=== PATIENT | female | born 1975 | race Two or more races ===

== ENCOUNTER → 2023-11-21 | Outpatient (CLI) | payer BC ==
[2023-11-21 07:51] LABS: Basophils # (auto) 0.1 10 ^3/uL (0-0.2); Basophils % (auto) 1.2 % (0.0-2.0); Eosinophils # (auto) 0.1 10 ^3/uL (0-0.8); Eosinophils % (auto) 2.4 % (0.0-7.0); Hematocrit 40.1 % (36.0-46.0); Hemoglobin 13.1 g/dL (12.2-16.2); Lymphocytes # (auto) 1.9 10 ^3/uL (0.4-5.4); Lymphocytes % (auto) 33.6 % (10.0-50.0); Mean Corpuscular Hemoglobin 30.3 pg (28.0-32.0); Mean Corpuscular Hgb Conc. 32.7 g/dL (32.0-36.0); Mean Corpuscular Volume 92.6 fL (80.0-100.0); Monocytes # (auto) 0.4 10 ^3/uL (0-1.3); Monocytes % (auto) 7.7 % (0.0-12.0); Neutrophils # (auto) 3.1 10 ^3/uL (1.6-8.6); Neutrophils % (auto) 55.1 % (37.0-80.0); Nucleated Red Blood Cells % 0.1 %; Red Blood Cells 4.33 10^6/uL (4.0-5.20); Red Cell Distribution Width 13.1 % (11.8-14.3); White Blood Cell 5.6 10^3/uL (4.4-10.8)
[2023-11-21 08:13] LABS: Urine Bacteria FEW /hpf (None Seen); Urine Blood Negative /uL (Negative); Urine Clarity Clear (Clear); Urine Color Colorless (Yellow); Urine Protein, UAD Negative (Negative); Urine Specific Gravity 1.007 (1.001-1.035); Urine Urobilinogen Normal (Negative); Urine WBC 9 /hpf (0 - 5); Urine pH 5.5 (5.0-9.0)
[2023-11-21 08:34] LABS: Protein, Urine < 6.0 mg/dL (0.0-11.9)
[2023-11-21 08:37] LABS: Creatinine, Urine 42.23 mg/dL (30.0-125.0)
[2023-11-21 08:38] LABS: Creatinine, Urine 41.74 mg/dL (30.0-125.0)
[2023-11-21 08:40] LABS: Alanine Aminotransferase 12 U/L (7-40); Albumin 4.6 g/dL (3.2-4.8); Alkaline Phosphatase 71 U/L (46-116); Anion Gap 6 (5-15); Aspartate Aminotransferase 20 U/L (13-40); BUN/Creatinine Ratio 8.9 (10.0-20.0); Blood Urea Nitrogen 8 mg/dL (9-23); CRP High Sensitivity 0.07 mg/dL (<1.0); Calcium 10.4 mg/dL (8.5-10.1); Carbon Dioxide 27 mmol/L (20-30); Chloride 107 mmol/L (98-107); Cholesterol 206 mg/dL (< 200); Creatine Kinase IFCC 79 U/L (34-145); Glucose 80 mg/dL (74-106); LDL Cholesterol 138 mg/dL (< 100); Potassium 4.2 mmol/L (3.5-5.1); Sodium 140 mmol/L (136-145); Triglycerides 119 mg/dL (< 150); Urine Protein/Creatinine Ratio < 0.14
[2023-11-21 08:41] LABS: Bilirubin, Total 0.5 mg/dL (0.2-1.0); HDL Cholesterol 56 mg/dL (40-59); Micro Albumin < 3.0 mg/L (<30.0); Total Protein 7.2 g/dL (5.7-8.2)
[2023-11-21 08:44] LABS: Microalb/Creat Ratio, Urine < 7.00
[2023-11-21 08:47] LABS: Erythrocyte Sedimentation Rate 13 mm/hr (0-20)
[2023-11-22 08:06] LABS: Complement C3 128 mg/dL (82-167)
== END | disposition home or self-care (01) ==
LOC: LAB 07:13
PROVIDERS: ATTEND Internal Medicine
DX: Z12.11 Encounter for screening for malignant neoplasm of colon (principal); M32.9 Systemic lupus erythematosus, unspecified; E11.9 Type 2 diabetes mellitus without complications; M35.9 Systemic involvement of connective tissue, unspecified; Z79.899 Other long term (current) drug therapy
CPT/HCPCS: 36415; 80053; 80061; 81001; 82043; 82550; 82570; 83036; 84156; 84443; 85025; 85652; 86141; 86160

== ENCOUNTER 2024-09-12 01:16 | Emergency (ER) | payer BC ==
[~2024-09-12] VITALS: Ht 157.5 cm; Wt 63.6 kg
--- NOTE | 2024-09-12 01:28 | ED.PDOC ---
History of Present Illness HPI Comments 49 y/o F presents with c/o abdominal pain, nausea, and vomiting, today. Patient endorses on sudden and unprovoked onset of symptoms, this morning. She comments on pain originating in her epigastric region and radiating towards her sternum and upper-back in between her shoulders. Patient reports on pain being sharp in quality, constant, and rates it a 10/10 in severity. She denies having any hematemesis, hematochezia, urinary symptoms, fever, chills, or other associated symptoms or modifiers at this time. Time Seen by MD: 01:20 Reviewed Notes: Nurses Notes, Medications, Allergies Allergies: Coded Allergies: No Known Drug Allergy (Verified Allergy, Unknown, 09/12/24) Home Meds Active Scripts Famotidine (PEPCID TABLET) 20 Mg Tb, 1 TAB PO BID PRN for 30 Days, #60 TAB 5 Refills Prov:DARNELL SILVER MD 09/12/24 Ondansetron HCl (Ondansetron Hydrochloride) 8 Mg Tab, 8 MG PO Q6HP PRN, #30 TAB Prov:DARNELL SILVER MD 09/12/24 Information Source: Patient Mode of Arrival: Ambulatory Severity: Moderate Timing: Hours Duration: Since onset Prehospital treatment: None Past Medical History PAST MEDICAL HISTORY: Denies Surgical History: Denies all surgeries CHAIN TENDER History: No Pertinent CHAIN TENDER History Family History Family History: Unknown Social History Smoker: Non-Smoker Alcohol: Denies ETOH Use Drugs: Denies Drug Use Lives In: Home Gastrointestinal: reports: abdominal pain, nausea, vomiting Musculoskeletal: reports: back pain All Other Systems: Reviewed and Negative (negative unless otherwise stated above or in HPI) Physical Exam General Appearance: Moderate Distress, Other (anxious appearing ) HEENT: Normal ENT Inspection, Pharynx Normal, TMs Normal Neck: Full Range of Motion, Non-Tender, Normal, Normal Inspection Respiratory: Chest Non-Tender, Lungs Clear, No Accessory Muscle Use, No Respiratory Distress, Normal Breath Sounds Cardiovascular: No Edema, No JVD, No Murmur, No Gallop, Normal Peripheral Puls es, Regular Rate/Rhythm Breast Exam: Deferred Gastrointestinal: Epigastric (tenderness), No Organomegaly, No Pulsatile Mass, Normal Bowel Sounds, Soft, Tenderness (epigastric region ) Genitalia: Deferred Pelvic: Deferred Rectal: Deferred Extremities: No calf tenderness, Normal capillary refill, Normal inspection, Normal range of motion, Non-tender, No pedal edema Musculoskeletal : Apperance: Normal Neurologic: Alert, stoneworker II-XII nml as Tested, No Motor Deficits, Normal Affect, Normal Mood, No Sensory Deficits Cerebellar Function: Normal Reflexes: Normal Skin: Dry, Normal Color, Warm Lymphatic: No Adenopathy Was a procedure done? Was a procedure done?: No EKG EKG : Pulse Rate (adult): 75 Timber: Normal Cardiac Rhythm: NSR Block: None Hypertrophy: None ST: Normal Differential Dx Considerations may include: gastritis, gastroenteritis, viral syndrome, spoiled food, GERD, PUD X-Ray, Labs, Meds, VS Vital Signs Date Time Temp Pulse Resp B/P (MAP) Pulse Ox O2 Delivery O2 Flow Rate FiO2 09/12/24 06:20 97.5 59 16 125/78 (94) 100 97.5 09/12/24 02:59 98.7 66 12 115/68 (84) 100 98.7 09/12/24 02:57 66 12 115/68 09/12/24 02:30 Room Air* 0 21 09/12/24 02:16 88 22 143/68 09/12/24 02:09 98.6 88 22 143/68 (93) 100 98.6 09/12/24 02:09 75 09/12/24 01:33 97.2 76 24 111/76 (88) 100 09/12/24 01:23 75 Lab Test 09/12/24 02:23 09/12/24 01:27 Range/Units Troponin I High Sensitivity < 3 L < 3 L </=34 ng/L White Blood Count 6.6 4.4-10.8 10^3/uL Red Blood Count 4.31 4.0-5.20 10^6/uL Hemoglobin 13.3 12.2-16.2 g/dL Hematocrit 40.0 36.0-46.0 % Mean Corpuscular Volume 92.9 80.0-100.0 fL Mean Corpuscular Hemoglobin 31.0 28.0-32.0 pg Mean Corpuscular Hemoglobin Concent 33.4 32.0-36.0 g/dL Red Cell Distribution Width 12.5 11.8-14.3 % Platelet Count 319 140-450 10^3/uL Mean Platelet Volume 7.1 6.9-10.8 fL Neutrophils (%) (Auto) 37.0-80.0 % Lymphocytes (%) (Auto) 10.0-50.0 % Monocytes (%) (Auto) 0.0-12.0 % Basophils (%) (Auto) 0.0-2.0 % Neutrophils # (Auto) 1.6-8.6 10 ^3/uL Lymphocytes # (Auto) 0.4-5.4 10 ^3/uL Monocytes # (Auto) 0-1.3 10 ^3/uL Differential Total Cells Counted 100.0 100 Neutrophils % (Manual) 31 L 37.0-80.0 Band Neutrophils % (Manual) 0 Lymphocytes % (Manual) 68 H 10.0-50.0 Monocytes % (Manual) 0 0-12 Eosinophils % (Manual) 1 0-7 Basophils % (Manual) 0 0.0-2.0 Metamyelocytes % (manual) 0 Myelocytes % (Manual) 0 Promyelocytes % (Manual) 0 Blast Cells % (Manual) 0 Reactive Lymphocytes 0 Platelet Estimate Adequate Prothrombin Time 10.0 9.3-11.8 sec Prothrombin Time INR 0.94 0.9-1.15 Activated Partial Thromboplast Time 23.7 L 24.5-34.5 SEC Sodium Level 141 136-145 mmol/L Potassium Level 4.1 3.5-5.1 mmol/L Chloride Level 103 98-107 mmol/L Carbon Dioxide Level 28 20-31 mmol/L Anion Gap 10 5-15 Blood Urea Nitrogen 13 9-23 mg/dL Creatinine 0.93 0.550-1.02 mg/dL Glomerular Filtration Rate Calc 74 >90 mL/min BUN/Creatinine Ratio 14.0 10.0-20.0 Serum Glucose 123 H 74-106 mg/dL Calcium Level 10.7 H 8.7-10.4 mg/dL Total Bilirubin 0.4 0.2-1.0 mg/dL Aspartate Amino Transferase (AST) 59 H 13-40 U/L Alanine Aminotransferase (ALT) 35 7-40 U/L Alkaline Phosphatase 84 46-116 U/L Total Protein 7.0 5.7-8.2 g/dL Albumin 4.7 3.2-4.8 g/dL Lipase 89 H 12-53 U/L Current Medications Medications (Trade) Dose Ordered Sig/Solitario Route Start Time Stop Time Status Last Admin Ondansetron HCl (Zofran) 4 mg ONCE ONCE IV 09/12/24 01:30 09/12/24 01:31 DC 09/12/24 02:15 Hydromorphone HCl (Dilaudid Injection) 1 mg ONCE ONCE IV 09/12/24 01:30 09/12/24 01:31 DC 09/12/24 02:16 Sodium Chloride 1,000 ml @ 1,000 mls/hr Q1H ONCE IVB 09/12/24 01:30 09/12/24 02:29 DC 09/12/24 02:10 Time of 1ST Reevaluation: 01:50 Reevaluation 1ST: Unchanged Time of 2ND Reevaluation: 03:00 Reevaluation 2ND: Improved Patient Education/Counseling: Diagnosis, Treatment Family Education/Counseling: No Family Present Departure 1 Departure Time of Disposition: 03:00 Impression: Primary Impression: Epigastric pain Additional Impression: Acute chest pain Disposition: HOME / SELF CARE / HOMELESS Condition: Stable e-Prescriptions Famotidine (PEPCID TABLET) 20 Mg Tb 1 TAB PO BID PRN for 30 Days, #60 TAB 5 Refills Prov: DARNELL SILVER MD 09/12/24 Ondansetron HCl (Ondansetron Hydrochloride) 8 Mg Tab 8 MG PO Q6HP PRN, #30 TAB Prov: DARNELL SILVER MD 09/12/24 Discharged With: Self Critical Care Note Critical Care Time?: No Stability Stability form required: No Heart Score Heart Score: Heart Score Response (Comments) Value History Slightly Suspicious 0 EKG Normal 0 Age 45-64 1 Risk Factors 1 or 2 risk factors 1 Troponin Normal limit 0 Total 2 I personally scribed for DARNELL SILVER MD ([email or web address]) on 09/12/24 at 01:28. Electronically submitted by Peter Jurado ([email or web address]). I personally scribed for DARNELL SILVER MD ([email or web address]) on 09/12/24 at 02:09. E lectronically submitted by Peter Jurado ([email or web address]). DARNELL SILVER MD Sep 12, 2024 01:28
[2024-09-12 01:38] LABS: Hemoglobin 13.3 g/dL (12.2-16.2); Mean Corpuscular Hgb Conc. 33.4 g/dL (32.0-36.0); Mean Corpuscular Volume 92.9 fL (80.0-100.0); Platelet Count (auto) 319 10^3/uL (140-450); Red Blood Cells 4.31 10^6/uL (4.0-5.20); Red Cell Distribution Width 12.5 % (11.8-14.3); White Blood Cell 6.6 10^3/uL (4.4-10.8)
[2024-09-12 01:46] LABS: Band Neutrophils % (manual) 0; Basophils % (manual) 0 (0.0-2.0); Blast Cells 0; Metamyelocytes % 0; Monocytes % (manual) 0 (0-12); Myelocytes % 0; Promyelocytes % 0; Reactive Lymphocytes 0
[2024-09-12 01:55] LABS: INR 0.94 (0.9-1.15); Partial Thromboplastin Time 23.7 SEC (24.5-34.5)
[2024-09-12 01:57] LABS: Alanine Aminotransferase 35 U/L (7-40); Albumin 4.7 g/dL (3.2-4.8); Alkaline Phosphatase 84 U/L (46-116); Anion Gap 10 (5-15); Aspartate Aminotransferase 59 U/L (13-40); Blood Urea Nitrogen 13 mg/dL (9-23); Calcium 10.7 mg/dL (8.7-10.4); Carbon Dioxide 28 mmol/L (20-31); Chloride 103 mmol/L (98-107); Glucose 123 mg/dL (74-106); Lipase 89 U/L (12-53); Potassium 4.1 mmol/L (3.5-5.1); Sodium 141 mmol/L (136-145)
[2024-09-12 01:58] LABS: Bilirubin, Total 0.4 mg/dL (0.2-1.0)
[2024-09-12] MEDS: SODIUM CHLORIDE 0.9% 1,000 ML IVB ONE (02:10)
[2024-09-12] MEDS: ONDANSETRON HCL 4 MG/2 ML VIAL IV ONE (02:15)
[2024-09-12] MEDS: HYDROmorphone HCL 2 MG/ML VL/or syr IV ONE (02:16)
[2024-09-12 03:11] LABS: Eosinophils % (manual) 1 (0-7); Lymphocytes % (manual) 68 (10.0-50.0); Platelet Estimate Adequate
[2024-09-12] MEDS: IOHEXOL 300 MG/ML 100ML BOTTLE IJ ONE (04:26)
--- NOTE | 2024-09-12 05:57 | DVH ---
EXAM: CT CT CHEST/AB/PL W CON- IV ONLY HISTORY: severe epigastric / chest pain COMPARISON: None TECHNIQUE: Helical CT images of the chest, abdomen, and pelvis were performed with 100 mL Omnipaque 300 IV contr ast. Sagittal and coronal reformatted images were obtained. This CT exam was performed using one or more of the following dose reduction techniques: Automated exposure control, adjustment of the mA an d/or kv according to patient size, or the use of iterative reconstruction techniques. Radiation Dose Information: CT Dose: CTDI volume is 6.66 mGy. Dose-length product is 456.15 mGy*cm FINDINGS: CT chest: No pneumothorax, pulmonary edema, consolidative infiltrates, pleural effusions, or suspicio us lung nodules. There is mild central peribronchial thickening. The heart is not enlarged. No thora cic aortic aneurysm. No suspicious mediastinal or axillary adenopathy. No fractures are identified about the bony thorax. There is mild thoracic degenerative disc disease. There are bilateral retropec broderick breast implants. CT abdomen: There is a subcentimeter left hepatic simple cyst. No intrahepatic biliary dilatation or suspicious liver mass. The spleen, gallbladder, pancreas, kidneys, and adrenal glands are unremarkabl e. No abdominal aortic aneurysm. CT pelvis: No abnormal bowel dilatation, free air, or free fluid. There is fecal retention throughout the colon. The appendix and urinary bladder are unremarkable. No fractures are identified about the lumbar spine, pelvis, or hips. There is mild lumbar degenerative disc disease. IMPRESSION: 1. Mild reactive airways disease. 2. Fecal retention in the colon suggestive of constipation. 3. Postoperative changes of bilateral breast implants. 4. No evidence of bowel obstruction, acute appendicitis, or other acute process in the abdomen or pel vis.
--- NOTE | 2024-09-12 06:09 | ECG ---
[facility] Test Date: 2024-09-12 Test Time: 01:23:24 Pat Name: LENNY LIN Department: ER Room: Gender: F Plumbing Warehouse Helper: THOR : 1975 Requested By: DARNELL SILVER Order Number: [id number] Reading MD: Measurements Intervals [place] Rate: 75 P: -2 ME: 147 QRS: 82 QRSD: 98 T: 54 QT: 396 QTc: 443 Interpretive Statements Sinus rhythm Borderline T abnormalities, lateral leads Please click the below link to view image of tracing.
[2024-09-12] MEDS ORDERED: FAMO20TA10 PO (06:11)
[2024-09-12] MEDS ORDERED: ONDA-180 PO (06:11)
[2024-09-12 06:20] VITALS: BP 125/78; PULSE 59; RESP 16; TEMP 97.5; O2SAT 100
== END 2024-09-12 06:23 | disposition home or self-care (01) ==
LOC: ER 01:16
DX: R10.13 Epigastric pain (principal); R07.89 Other chest pain; R11.2 Nausea with vomiting, unspecified; Z98.82 Breast implant status
CPT/HCPCS: 36415; 71260; 74177; 80053; 83690; 84484; 85007; 85027; 85610; 85730; 93005; 96361; 96374; 96375; 99285; J1171; J2405; J7030; Q9967

== ENCOUNTER 2024-09-19 23:50 | Emergency (ER) | payer BC ==
[~2024-09-19] VITALS: Ht 157.5 cm; Wt 65.4 kg
[~2024-09-19 23:50] MED LIST: FAMO20TA10 PO; ONDA-180 PO
[2024-09-19 23:59] VITALS: BP 142/76; RESP 20; O2SAT 100
[2024-09-20 00:11] VITALS: PULSE 73
--- NOTE | 2024-09-30 09:03 | ECG ---
[facility] Test Date: 2024-09-20 Test Time: 00:11:32 Pat Name: LENNY LIN Department: ED Room: Gender: F Supervisor Quality Control: : 1975 Requested By: JENNIFER LOVE Order Number: [id number] Reading MD: Raúl Jiménez Measurements Intervals [place] Rate: 73 P: 21 RI: 146 QRS: 75 QRSD: 95 T: 60 QT: 383 QTc: 422 Interpretive Statements Sinus rhythm Probable anteroseptal infarct, old Electronically Signed On 10-01-2024 22:48:32 PDT by Raúl Jiménez Please click the below link to view image of tracing.
== END 2024-09-20 00:25 | disposition left against medical advice (07) ==
LOC: ER 23:50
DX: R10.13 Epigastric pain (principal); Z53.21 Procedure and treatment not carried out due to patient leaving prior to being seen by health care provider
CPT/HCPCS: 93005

== ENCOUNTER → 2025-04-22 | Outpatient (CLI) | payer BC ==
[2025-04-22 09:27] LABS: Alanine Aminotransferase 16 U/L (7-40); Albumin 4.7 g/dL (3.2-4.8); Alkaline Phosphatase 87 U/L (46-116); Amylase 57 U/L (30-118); Anion Gap 8 (5-15); BUN/Creatinine Ratio 7.4 (10.0-20.0); Bilirubin, Direct 0.1 mg/dL (<0.3); Calcium 10.2 mg/dL (8.7-10.4); Carbon Dioxide 29 mmol/L (20-31); Chloride 104 mmol/L (98-107); Glucose 74 mg/dL (74-106); Potassium 4.7 mmol/L (3.5-5.1); Sodium 141 mmol/L (136-145); Total Protein 7.4 g/dL (5.7-8.2)
[2025-04-22 09:28] LABS: Bilirubin, Total 0.4 mg/dL (0.2-1.0)
[2025-04-22 09:33] LABS: Blood Urea Nitrogen 7 mg/dL (9-23)
[2025-04-22 09:47] LABS: Urine Protein, UAD Negative (Negative)
[2025-04-22 10:09] LABS: Microalb/Creat Ratio, Urine < 3.0
[2025-04-22 10:51] LABS: Lipase 62 U/L (12-53)
== END | disposition home or self-care (01) ==
LOC: LAB 08:41
PROVIDERS: ATTEND Internal Medicine
DX: R74.01 Elevation of levels of liver transaminase levels (principal); R76.89 Other specified abnormal immunological findings in serum; M32.9 Systemic lupus erythematosus, unspecified
CPT/HCPCS: 36415; 80053; 80076; 81001; 82043; 82150; 82570; 83690; 85379; 85652; 86141